=== PATIENT | male | born 1970 | race Caucasian/White ===

== ENCOUNTER 2017-01-23 17:34 | Emergency (ER) | payer BC, OTHER ==
[~2017-01-23] VITALS: Ht 177.8 cm; Wt 80.0 kg
[2017-01-23 17:47] VITALS: Ht 177.8 cm; Wt 80.0 kg
[2017-01-23] MEDS ORDERED: IBUPROFEN 600 MG TAB PO STA (18:18)
--- NOTE | 2017-01-23 18:48 | DIAGNOSTIC IMAGING REPORT ---
R FOOT MIN 3 VIEWS ROUTINE, R ANKLE MIN 3 VIEWS ROUTINE CLINICAL HISTORY: 46 years-old Male presenting with right foot pain, fall. TECHNIQUE: Frontal, oblique, and lateral views of the right foot and frontal, mortise, and lateral views the right ankle were obtained. COMPARISON: None. FINDINGS: Right foot: No acute fracture or malalignment. No significant degenerative change. No radiographic evidence of soft tissue abnormality. Right ankle: Ankle mortise intact. No acute fracture or malalignment. No radiographic evidence of soft tissue swelling. IMPRESSION: 1. No acute osseous injury of the right foot. 2. No acute osseous injury of the right ankle. Electronically signed by: Edd Vargas M.D. 01/23/2017 6:47 PM Dictated Date/Time: 01/23/2017 6:45 PM
--- NOTE | 2017-01-23 19:27 | EMERGENCY ROOM VISIT NOTE ---
ED Visit Note First contact with patient: 17:58 CHIEF COMPLAINT: Ankle pain HISTORY OF PRESENT ILLNESS: This 46-year-old male patient presents to the emergency department ambulatory after sustaining an injury to the right ankle and foot with a twisting, inversion motion when he stepped off a curb and twisted his ankle at work today. Complains of moderate swelling and pain. The patient complains of pain along the outside of the ankle. The patient does have pain of the foot. The patient rates the pain as sharp and 9/10. There was no audible pop. The patient is knot able to bear weight on the foot. Constant pain, worse with movement, weight bearing, and the dependent position. No knee pain, the patient is able to move their toes. No numbness or weakness of the foot, no laceration. The patient has not had a previous injury to this ankle. The patient has taken nothing for the pain. The patient denies any other injury. REVIEW OF SYSTEMS: A 6 system review of systems was completed with positives and pertinent negatives listed in the HPI. ALLERGIES: No known drug allergies MEDICATIONS: None PMH: None SOCIAL HISTORY: The patient is employed by [employer], he is a smoker PHYSICAL EXAM: Vital Signs: Reviewed Nurse's notes, vital signs stable. GENERAL : This is a 46-year-old male, no acute distress, but appears in pain, well- developed, well-nourished. MENTAL STATUS: Alert, oriented to person place and time, and cooperative. MUSCULOSKELETAL: The right ankle is swollen and tender over the lateral malleolus, but the skin is intact and there is no ligamentous instability. There is minimal fifth metatarsal tenderness. There is no tenderness over the rest of the foot. There is no calf or tibia/fibular tenderness. There is no visual deformity. The foot and toes are warm and well- perfused. Dorsalis pedis pulse 2+. Sensation to pain and light touch is intact. Capillary refill less than 2 seconds. EMERGENCY DEPARTMENT COURSE: I examined the patient. He was given an ice pack and 600 mg oral Motrin. The patient was offered stronger pain medication for tonight but declined. X-rays of the right ankle and foot were reviewed by myself and read by radiology and reveal no fracture or dislocation. A gel splint was applied to the ankle under my direction and the position was satisfactory. Neurovascular status was rechecked and intact. The patient was instructed on the use of crutches. The patient was discharged home in good condition. R FOOT MIN 3 VIEWS ROUTINE, R ANKLE MIN 3 VIEWS ROUTINE CLINICAL HISTORY: 46 years-old Male presenting with right foot pain, fall. TECHNIQUE: Frontal, oblique, and lateral views of the right foot and frontal, mortise, and lateral views the right ankle were obtained. COMPARISON: None. FINDINGS: Right foot: No acute fracture or malalignment. No significant degenerative change. No radiographic evidence of soft tissue abnormality. Right ankle: Ankle mortise intact. No acute fracture or malalignment. No radiographic evidence of soft tissue swelling. IMPRESSION: 1. No acute osseous injury of the right foot. 2. No acute osseous injury of the right ankle. R FOOT MIN 3 VIEWS ROUTINE, R ANKLE MIN 3 VIEWS ROUTINE CLINICAL HISTORY: 46 years-old Male presenting with right foot pain, fall. TECHNIQUE: Frontal, oblique, and lateral views of the right foot and frontal, mortise, and lateral views the right ankle were obtained. COMPARISON: None. FINDINGS: Right foot: No acute fracture or malalignment. No significant degenerative change. No radiographic evidence of soft tissue abnormality. Right ankle: Ankle mortise intact. No acute fracture or malalignment. No radiographic evidence of soft tissue swelling. IMPRESSION: 1. No acute osseous injury of the right foot. 2. No acute osseous injury of the right ankle. Problem List Medical Problems: (1) Back pain Status: Resolved (2) Foreign body of finger of right hand Status: Resolved (3) Injury of back Status: Resolved (4) Injury of back Status: Resolved (5) Injury of back Status: Resolved (6) TOBACCO USE DISORDER Status: Chronic Current/Historical Medications No Active Prescriptions or Reported Meds Allergies Coded Allergies: No Known Allergies (Unverified , 01/23/17) Vital Signs Date Time Temp Pulse Resp B/P (MAP) Pulse Ox O2 Delivery O2 Flow Rate FiO2 01/23/17 20:07 36.9 77 18 135/93 97 01/23/17 17:47 36.9 77 18 135/93 97 Room Air Medications Administered Medications (Trade) Dose Ordered Sig/Dang Route Start Time Stop Time Status Last Admin Dose Admin Ibuprofen (Motrin Tab) 600 mg NOW STAT PO 01/23/17 18:18 01/23/17 18:20 DC 01/23/17 18:46 600 MG Departure Information Impression Primary Impression: Right ankle sprain Additional Impression: Work related injury Dispostion Home / Self-Care Condition GOOD Prescriptions No Active Prescriptions or Reported Meds Referrals No Doctor, Assigned (PCP) Bruce Reardon M.D. Forms HOME CARE DOCUMENTATION FORM, IMPORTANT VISIT INFORMATION, Work Instructions Return To Work: 5 days Patient Instructions Ankle Sprain, My FPSI Additional Instructions Ice and elevate ankle for swelling and pain. Crutches with weight bearing as tolerated. Wear the splint 7-14 days or until pain subsides. Ibuprofen 600 mg every 6 hrs for pain. Follow up with an employer approved worker's compensation doctor or orthopedic doctor. Call for an appointment tomorrow for a recheck next week and clearance to return to work. Return with worsening symptoms Problem Qualifiers Primary Impression: Right ankle sprain Encounter type: initial encounter
[2017-01-23 20:07] VITALS: BP 135/93; PULSE 77; TEMP 36.9; O2SAT 97
== END 2017-01-23 20:08 | disposition home or self-care (01) ==
LOC: C.EDB 17:35 → C.EDD 20:08
DX: S93.401A Sprain of unspecified ligament of right ankle, initial encounter (principal); W10.1XXA Fall (on)(from) sidewalk curb, initial encounter; Y99.0 Civilian activity done for income or pay; F17.210 Nicotine dependence, cigarettes, uncomplicated